=== PATIENT | female | born 1980 | race Caucasian/White ===

== ENCOUNTER 2019-04-13 09:29 | Emergency (ER) | payer BC, OTHER ==
[~2019-04-13] VITALS: Ht 160 cm; Wt 86.2 kg
[2019-04-13] MEDS ORDERED: KETOROLAC 60 MG/2 ML VIAL IM ONE (11:30)
[2019-04-13] MEDS ORDERED: CYCLOBENZAPRINE 10 MG (FLEXERIL) TAB PO SCH (11:30)
[2019-04-13] MEDS ORDERED: predniSONE 20 MG TAB PO ONE (11:30)
--- NOTE | 2019-04-13 11:37 | ED Back Pain ---
General Chief Complaint: Back Problems Stated Complaint: LOW BACK / L LEG PAIN Nursing Triage Note: LEFT LOW BACK ET LEFT ANT LEG PAIN AFTER BENDING. Nursing Sepsis Screen: No Definite Risk Source of Information: Patient Exam Limitations: No Limitations History of Present Illness Date Seen by Provider: Apr 13, 2019 Time Seen by Provider: 11:15 Initial Comments 38-year-old female who presents to the emergency room with complaints of left lower back pain that radiates to her left leg for the past week after bending and lifting something off the ground. She reports that she was seen by her chiropractor did not have improvement of symptoms. She denies loss of bowel or bladder, saddle paresthesia, or numbness and tingling sensation. Location: Lumbar Spine Timing/Duration: 1 Week Pain/Injury Location: Back Radiation: Upper Legs Associated Symptoms: lower back pain Allergies and Home Medications Allergies Coded Allergies: morphine (Verified Allergy, Severe, HIVES, 04/13/19) Home Medications Cyclobenzaprine HCl 5 Mg Tablet, 5 MG PO Q8H Prescribed by: CAMRON ALCARAZ on 04/13/19 1206 Prednisone 50 Mg Tab, 50 MG PO DAILY Prescribed by: CAMRON ALCARAZ on 04/13/19 1206 Patient Home Medication List Home Medication List Reviewed: Yes Review of Systems Constitutional: see HPI; No chills, No fever Musculoskeletal: see HPI, back pain All Other Systems Reviewed Negative Unless Noted: Yes Past Mbmuibl-Cukzxu-Ijaxae Hx Past Med/Social Hx: Reviewed Nursing Past Med/Soc Hx Patient Social History Recent Foreign Travel: No Contact w/Someone Who Travel: No Recent Infectious Disease Expo: No Recent Hopitalizations: No Seasonal Allergies Seasonal Allergies: No Past Medical History Surgeries: Yes Orthopedic Respiratory: No Cardiac: No Neurological: No Genitourinary: No Gastrointestinal: No Endocrine: Yes Diabetes, Non-Insulin dep HEENT: No Cancer: No Psychosocial: No Integumentary: No Family Medical History Reviewed Nursing Family Hx Physical Exam Vital Signs Vital Signs - First Documented 04/13/19 10:12 Temp 95.5 Pulse 82 Resp 16 B/P (MAP) 124/80 (95) Pulse Ox 100 O2 Delivery Room Air Capillary Refill : Less Than 3 Seconds Height, Weight, BMI Height: 5'3.00" Weight: 190lbs. oz. 86.415026wk; BMI Method:Stated General Appearance: No Apparent Distress, WD/WN Neck: Full Range of Motion, Normal Inspection, Non Tender, Supple Cardiovascular: Regular Rate, Rhythm, No Edema, No Gallop, No JVD, No Murmur, Normal Peripheral Pulses Respiratory: Chest Non Tender, Lungs Clear, Normal Breath Sounds, No Accessory Muscle Use, No Respiratory Distress, Accessory Muscle Use Back: Normal Inspection, No CVA Tenderness, No Vertebral Tenderness Extremity: Normal Capillary Refill Neurologic/Psychiatric: Alert, Oriented x3, Normal Mood/Affect Skin: Normal Color, Warm/Dry Progress/Results/Core Measures Results/Orders My Orders Orders - CAMRON ALCARAZ Ketorolac Injection (Toradol Injection) (04/13/19 11:30) Prednisone Tablet (Deltasone Tablet) (04/13/19 11:30) Cyclobenzaprine Tablet (Flexeril Tablet) (04/13/19 11:30) Medications Given in ED Vital Signs/I&O 04/13/19 04/13/19 10:12 12:10 Temp 95.5 95.5 Pulse 82 82 Resp 16 16 B/P (MAP) 124/80 (95) 124/80 (95) Pulse Ox 100 100 O2 Delivery Room Air Blood Pressure Mean: 95 Departure Impression Primary Impression: Lumbar muscle pain Disposition: 01 HOME, SELF-CARE Condition: Stable/Unchanged Departure-Patient Inst. Decision time for Depature: 12:04 Referrals: NO,LOCAL PHYSICIAN (PCP/Family) Primary Care Physician Patient Instructions: Lumbar Muscle Strain (DC) Add. Discharge Instructions: Take medications as directed. You may use ibuprofen and Tylenol as directed by the bottle for pain relief. Follow-up primary care provider within 1 week if no improvement. Return back to the emergency room for worsening symptoms or concerns as needed. All discharge instructions reviewed with patient and/or family. Voiced understanding. Scripts Cyclobenzaprine HCl (Cyclobenzaprine HCl) 5 Mg Tablet 5 MG PO Q8H for 7 Days, #14 TAB Prov: CAMRON ALCARAZ 04/13/19 Prednisone (Prednisone) 50 Mg Tab 50 MG PO DAILY for 4 Days, #4 TAB Prov: CAMRON ALCARAZ 04/13/19 CAMRON ALCARAZ Apr 13, 2019 11:36
--- NOTE | 2019-04-13 11:57 | NUR ---
CAMRON IN TALKING TO PT AT THIS TIME.
[2019-04-13] MEDS ORDERED: CYCL5TAB PO (12:06)
[2019-04-13] MEDS ORDERED: PRD50T PO (12:06)
[2019-04-13 12:10] VITALS: BP 124/80
== END 2019-04-13 12:10 | disposition home or self-care (01) ==
LOC: EDUNIT# 09:29 → ER 09:32
DX: M54.5 Low back pain (principal); E11.9 Type 2 diabetes mellitus without complications; Z88.5 Allergy status to narcotic agent; X50.1XXA Overexertion from prolonged static or awkward postures, initial encounter
CPT/HCPCS: 96372

== ENCOUNTER 2022-11-30 20:23 | Emergency (ER) | payer BC ==
[~2022-11-30] VITALS: Ht 160 cm; Wt 90.7 kg
[~2022-11-30 20:23] MED LIST: CYCL5TAB PO; PRD50T PO
[2022-11-30 20:27] VITALS: BP 126/89
[2022-11-30] MEDS ORDERED: IBUPROFEN 800 MG (MOTRIN) TAB PO STA (20:50)
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
--- NOTE | 2022-11-30 22:30 | Diagnostic Imaging Report ---
CLINICAL INDICATIONS: Patient slipped and twisted left ankle. EXAM: X-ray left ankle, 3 views. COMPARISONS: X-ray of the left ankle dated 09/05/2016. FINDINGS: There is no interval acute fracture or dislocation. Stable old healed fracture deformity of the distal fibular diaphysis. Again seen, screws affixing the distal tibia and medial malleolar region which is healed. The ankle mortise and syndesmotic joint are unremarkable. IMPRESSION: There is no acute fracture or dislocation. Dictated by: Dictated on workstation # [id number]
== END 2022-11-30 21:55 | disposition home or self-care (01) ==
LOC: EDUNIT# 20:23 → ER 20:24
DX: S93.402A Sprain of unspecified ligament of left ankle, initial encounter (principal); W18.40XA Slipping, tripping and stumbling without falling, unspecified, initial encounter; X50.1XXA Overexertion from prolonged static or awkward postures, initial encounter
CPT/HCPCS: 73610